=== PATIENT | female | born 1970 | race Caucasian/White ===

== ENCOUNTER → 2016-12-19 | Outpatient (CLI) | payer BC ==
[2016-08-20 14:30] VITALS: BP 140/90
[2016-12-19 14:55] LABS: CREATINE KINASE 56 Units/L (26-192); CREATINE KINASE MB < 1.0 ng/mL (0-4.0); MAGNESIUM 1.8 mg/dL (1.7-2.9)
[2016-12-19 15:02] LABS: RHEUMATOID FACTOR NEGATIVE (NEGATIVE)
[2016-12-22 06:15] LABS: ANTI-NUCLEAR ANTIBODY TEST None Detected (None Detected)
== END ==
LOC: LAB 13:35
PROVIDERS: ATTEND Nurse Practitioner Family
DX: R00.2 Palpitations (principal); R53.83 Other fatigue
CPT/HCPCS: 36415; 82550; 82553; 83735; 85652; 86140; 86308; 86430

== ENCOUNTER 2017-01-28 16:13 | Emergency (ER) | payer BC ==
[2017-01-28 16:20] VITALS: BP 137/78; BMI 48.4
[2017-01-28] MEDS ORDERED: ROCEPHIN VIAL 1 GM IM ONE (16:28)
[2017-01-28] MEDS ORDERED: TORADOL 60 MG VIAL IM ONE (16:28)
--- NOTE | 2017-01-28 16:28 | DR.EARACHE ---
HPI - Time Seen Time seen: 16:21 - PCP Primary Care Physician: ROMULO HOU - HPI Comment HPI Comment: PATIENT ON PEN VK FOR TOOTH INFECTION FOR FEW DAYS. LEFT EAR STARTED ACHING SINCE YESTERDAY. WORSE TODAY. NO FEVER. - Complaint/Symptoms Chief Complaint Doctor Comments: LEFT EAR ACHE TIMES ONE DAY. Chief Complaint:: LEFT EAR ACHE THAT BEGAN YESTERDAY - Nurses notes reviewed Nurses Notes Review: Yes - Source History Provided: Patient - Mode of arrival Mode of Arrival: Ambulatory - Timing Onset of Chief Complaint: 01/27/17 Came on: Suddenly - Duration Duration: Constant Duration: Days - Location Location: Left - Severity Severity: Moderate - Context Context: Spontaneously Developed - Associated signs and symptoms Associated signs and symptoms: Toothache PMH - PMH Past Medical History: Yes Past Medical History: Hypertension Past Surgical History: Yes Surgical History: , Cholecystectomy, Hysterectomy, Tonsillectomy - Family History History of Family Medical Conditions: No - Social History Does patient currently use any type of tobacco product: No Have you used tobacco products in the last 12 months: No Type of Tobacco Use: None Does any household member use tobacco: No Alcohol Use: None Do you use any recreational Drugs:: No Lives With: Spouse Lives Where: Home - infectious screening In the last 2 months have you had wt loss of >10#?: NO Have you had fever, night sweats or hemotysis?: No Have you traveled outside the country in the last 6 months?: No Isolation: Standard ROS - Review of Systems Constitutional: No Symptoms Reported. negative: Chills, Fever Eyes: No Symptoms Reported. negative: Eye Pain, Discharge ENTM: Ear Pain. negative: Ear Discharge, Hearing Loss, Nose Discharge, Nose Congestion, Throat Pain Respiratoy: No Symptoms Reported Cardiovascular: No Symptoms Reported Gastrointestinal/Abdominal: No Symptoms Reported Genitourinary: No Symptoms Reported Neurological: No Symptoms Reported Musculoskeletal: No Symptoms Reported Integumentary: No Symptoms Reported Hematologic/Lymphatic: No Symptoms Reported Endocrine: No Symptoms Reported All Other Systems: Reviewed and Negative PE - Vitals Vitals: Temperature 98.9 F Pulse Rate 92 Respiratory Rate 17 Blood Pressure 137/78 O2 Sat by Pulse Oximetry 99 - General Limitations: No Limitations General Appearance: Alert - Head Head Exam: Normal Inspection - Eyes Eye exam: Normal Appearance - ENT ENT Exam: Normal External Ear Exam External Ear Exam: Normal External Inspection TM/Canal Exam: Left Erythema, Left Canal Tenderness Nose Exam: Normal Nose Exam Mouth Exam: Normal Inspection Teeth Exam: Dental Tenderness # (LEFT LOWER MOLARS), Gingival Swelling Throat Exam: Normal Inspection - Neck Neck Exam Focused: Normal Inspection - Chest Chest Inspection: Normal Inspection - Respiratory Respiratory Exam: Normal Lung Sounds Bilat Respiratory Exam: Bilateral Clear to Auscultation - Cardiovascular Cardiovascular Exam: Regular Rate, Normal Rhythm, Normal Heart Sounds - Abdominal Exam Abdominal Exam: Normal Inspection - Extremities Extremities Exam: Normal Inspection - Back Back Exam: Normal Inspection - Neurological Neurological Exam: Alert, Oriented X3 - Psychiatric Psychiatric Exam: Normal Affect, Normal Mood - Skin Skin Exam: Normal Color MDM - Additional Information Additional Information Obtained From: Family - Differential Diagnosis Tympanic membrane: Otitis media Referred pain: Dental Course - Treatment Treatment: SEE ORDERS. IM ROCEPHI AND TORADOL IN ED. - Education/Counseling Education/Counseling: Patient, Family, Education Educated On: Treatment, Diagnosis, Needs for Follow Up - Diagnosis Discharge Problem: Dental infection Left otitis media Qualifiers: Otitis media type: suppurative Chronicity: acute Recurrence: not specified as recurrent Spontaneous tympanic membrane rupture: without spontaneous rupture Qualified Code(s): H66.002 - Acute suppurative otitis media without spontaneous rupture of ear drum, left ear - Discharge Plan Disposition: 01 HOME, SELF-CARE Condition: Stable Prescriptions: Acetaminophen/Codeine Tab [TYLENOL w/CODEINE #3 (300 MG/30 MG) *] 1 tab PO Q4- 6H PRN #15 tab PRN Reason: Pain Amoxicillin & Pot Clavulanate [AUGMENTIN TAB 875 mg/125 mg *] 1 tab PO BID #20 tab Ketorolac Tromethamine [Toradol Tab] 10 mg PO Q8H PRN #15 tab PRN Reason: Pain - Follow ups/Referrals Follow ups/Referrals: ANDREY CONLEY [Primary Care Provider] - 1 day - Instructions Instructions: Otitis Media, Adult, Gingivitis, [id number] Additional Instructions: RETURN TO ED IF WORSE.
[2017-01-28] MEDS ORDERED: ROCEPHIN VIAL 1 GM ONE (16:33)
[2017-01-28] MEDS ORDERED: TORADOL 60 MG VIAL ONE (16:33)
== END 2017-01-28 16:54 | disposition home or self-care (01) ==
LOC: ER 16:16
DX: H66.002 Acute suppurative otitis media without spontaneous rupture of ear drum, left ear (principal); K04.7 Periapical abscess without sinus
CPT/HCPCS: 96372; 99282; J0696; J1885

== ENCOUNTER → 2017-07-31 | Outpatient (CLI) | payer BC ==
[2017-07-31 09:41] LABS: ALANINE AMINOTRANSFERASE 35 Units/L (12-78); ALBUMIN 3.6 g/dL (3.4-5.0); ALKALINE PHOSPHATASE 70 Units/L (46-116); ASPARTATE AMINO TRANSFERASE 22 Units/L (15-37); BLOOD UREA NITROGEN 16 mg/dL (7-18); CALCIUM 9.2 mg/dL (8.5-10.1); CARBON DIOXIDE 27.4 mmol/L (21-32); CHLORIDE 103 mmol/L (98-107); COR NA(FOR HYPERGLY) 139 mmol/L (136-145); CREATININE 0.83 mg/dL (0.55-1.02); FREE T4 (FREE THYROXINE) 1.05 ng/dL (0.76-1.46); SODIUM 139 mmol/L (136-145); TOTAL PROTEIN 7.8 g/dL (6.4-8.2); TSH (3RD GENERATION) 1.863 uIU/mL (0.358-3.74); URIC ACID 6.8 mg/dL (2.6-6.0); eGFR BLACK RACES > 60 (>60); eGFR NON BLACK RACES > 60 (>60)
[2017-07-31 09:44] LABS: BASOPHILS # (AUTO) 0.1 X10^3/uL (0.0-0.1); BASOPHILS % (AUTO) 0.9 % (0.2-1.0); EOSINOPHILS # (AUTO) 0.2 x10^3/uL (0.0-0.2); EOSINOPHILS % (AUTO) 2.1 % (0.9-2.9); HEMATOCRIT 38.6 % (36.0-47.0); HEMOGLOBIN 13.5 g/dL (12.0-16.0); LYMPHOCYTES # (AUTO) 2.1 X10^3/uL (1.3-2.9); MEAN CORPUSCULAR HEMOGLOBIN 27.3 pg (27.0-34.0); MEAN CORPUSCULAR VOLUME 78.1 fL (80.0-100.0); MEAN PLATELET VOLUME 7.2 fL (7.4-11.0); MONOCYTES # (AUTO) 0.4 x10^3/uL (0.3-0.8); MONOCYTES % (AUTO) 4.7 % (0.0-13.0); NEUTROPHILS # (AUTO) 5.3 x10^3/uL (2.2-4.8); NEUTROPHILS % (AUTO) 66.3 % (42.0-75.0); PLATELET COUNT 247 X10^3/uL (150.0-450.0); RED BLOOD COUNT 4.94 X10^6/uL (3.5-5.4); RED CELL DISTRIBUTION WIDTH 14.6 % (11.6-16.5); WHITE BLOOD COUNT 7.9 X10^3/uL (3.6-10.0)
--- NOTE | 2017-07-31 10:00 | RAD ---
Examination: Left elbow, four views History: Soft tissue nodule on end of elbow Comparison reference: 12/19/2012 Findings: There is no evidence for fracture, dislocation, articular abnormality or bone destruction. The soft tissues are unremarkable without evidence for pathologic calcification. Impression: No significant abnormality demonstrated. Reported By:
[2017-07-31 10:15] LABS: ERYTHROCYTE SEDIMENTATION RATE 19 MM/HOUR (0-20)
[2017-08-03 06:48] LABS: DEHYDROEPIANDROSTERONE SULFATE 132 ug/dL (32-240)
[2017-08-05 10:57] LABS: ESTROGENS TOTAL 56.4 pg/mL
== END ==
LOC: LAB 08:29
PROVIDERS: ATTEND Nurse Practitioner Family
DX: E03.8 Other specified hypothyroidism (principal); I10 Essential (primary) hypertension; M79.89 Other specified soft tissue disorders; M79.671 Pain in right foot; M79.672 Pain in left foot; R23.2 Flushing
CPT/HCPCS: 36415; 73070; 80053; 82627; 82671; 84144; 84270; 84402; 84403; 84439; 84443; 84481; 84550; 85025; 85652; 86140

== ENCOUNTER 2017-10-25 12:49 | Emergency (ER) | payer BC ==
[2017-10-25 13:00] VITALS: BMI 46.7
--- NOTE | 2017-10-25 14:26 | DR.SOBA ---
HPI - Primary Care Physician Primary Care Physician: alejandro tyler - Complaints Chief Complaint:: patient was dx with flu b 4 days ago. she stated she was short of breath and coughing and could not catch her breath. - Source History Provided: Patient - Mode of Arrival Mode of Arrival: Ambulatory - Timing Onset of Chief Complaint: 10/25/17 PMH - PMH Past Medical History: Yes (no hx asthma) Past Medical History: Hypertension Past Surgical History: Yes Surgical History: , Cholecystectomy, Hysterectomy, Tonsillectomy - Family History History of Family Medical Conditions: No - Social History Does patient currently use any type of tobacco product: No Have you used tobacco products in the last 12 months: No Type of Tobacco Use: None Does any household member use tobacco: No Alcohol Use: Occasionally Do you use any recreational Drugs:: No Lives With: Family Lives Where: Home - infectious screening In the last 2 months have you had wt loss of >10#?: NO Have you had fever, night sweats or hemotysis?: No Have you traveled outside the country in the last 6 months?: No Isolation: Standard ROS - Review of Systems Constitutional: See HPI Eyes: No Symptoms Reported ENTM: No Symptoms Reported Respiratoy: Non-Productive Cough, Short of Breath, Other (recent dx flu) Cardiovascular: No Symptoms Reported Gastrointestinal/Abdominal: No Symptoms Reported Genitourinary: No Symptoms Reported Neurological: No Symptoms Reported Musculoskeletal: No Symptoms Reported PE - Vital Signs Vitals: Temperature 97.5 F Pulse Rate 109 Respiratory Rate 18 Blood Pressure [Left Arm] 130/75 Blood Pressure 204/90 O2 Sat by Pulse Oximetry 98 - General Limitations: No Limitations General Appearance: Alert, In No Apparent Distress, Anxious, Obese. negative: Appears Intoxicated, Lethargic, In Distress - Head Head Exam: Normal Inspection, Atraumatic - Eyes Eye exam: Normal Appearance - ENT ENT Exam: Normal Exam - Neck Neck Exam: Normal Inspection - Chest Chest Inspection: Normal Inspection - Respiratory Respiratory Exam: Normal Lung Sounds Bilat. negative: Accessory Muscle Use, Chest Wall Tenderness, Respiratory Distress, Stridor Respiratory Exam: Bilateral Clear to Auscultation - Cardiovascular Cardiovascular Exam: Tachycardia - Abdominal Exam Abdominal Exam: Normal Inspection, Normal Bowel Sounds, Soft. negative: Tenderness - Extremities Extremities Exam: Normal Inspection, Full ROM, Normal Capillary Refill. negative: Edema - Neurologic Neurological Exam: Alert, Oriented X3 - Psychiatric Psychiatric Exam: Anxious - Skin Skin Exam: Warm, Dry Course - Treatment Treatment: much better after duoneb x 1 - Diagnosis Discharge Problem: SOB (shortness of breath) - Discharge Plan Disposition: 01 HOME, SELF-CARE Condition: Stable - Follow ups/Referrals Follow ups/Referrals: DANIEL TYLER [Primary Care Provider] - 3 days - Instructions Additional Notes - Additional Notes Additional Notes: Pt describes sudden onset SOB while coughing. I did ask her about a panic attack as she seemed quite anxious on arrival but this resolved. Pt feels ready for d/c, breathing easily on Room Air
[2017-10-25] MEDS ORDERED: DUONEB 0.5 MG/3 MG NEB ONE (14:49)
[2017-10-25 14:55] VITALS: BP 119/67
== END 2017-10-25 14:55 | disposition home or self-care (01) ==
LOC: ER 12:49
DX: R06.02 Shortness of breath (principal)
CPT/HCPCS: 99282; J7620